=== PATIENT | male | born 1990 | race Caucasian/White ===

== ENCOUNTER 2024-07-04 07:44 | Emergency (ER) | payer MEDICAID ==
[~2024-07-04] VITALS: Ht 172.7 cm; Wt 70.0 kg
[2024-07-04 07:48] VITALS: TEMP 98.2; O2SAT 100
[2024-07-04 08:30] VITALS: BP 144/98; PULSE 80; RESP 16
[2024-07-04] MEDS: IBUPROFEN 800MG TABLET PO ONE (08:30)
[2024-07-04] MEDS ORDERED: CYCL5TAB MT (09:19)
[2024-07-04] MEDS ORDERED: IBUP-2030 MT (09:19)
== END 2024-07-04 09:29 | disposition home or self-care (01) ==
LOC: ER 07:44
DX: S39.012A Strain of muscle, fascia and tendon of lower back, initial encounter (principal); M25.512 Pain in left shoulder; V49.9XXA Car occupant (driver) (passenger) injured in unspecified traffic accident, initial encounter; Y93.89 Activity, other specified; Y92.89 Other specified places as the place of occurrence of the external cause; Y99.8 Other external cause status
CPT/HCPCS: 72100; 73030; 99284